=== PATIENT | female | born 1950 | race Caucasian/White ===

== ENCOUNTER 2022-09-23 11:06 | Inpatient (IN) | payer OTHER ==
[2022-09-23] MEDS ORDERED: LACTATED RINGERS SOLUTION 1000 ML INFUS.BAG IV ONE (12:07)
[2022-09-23] MEDS ORDERED: MECLIZINE HCL 25 MG TABLET (FP) PO ONE (12:07)
[2022-09-23 12:23] LABS: BASO % 0.6 % (0-2.0); EOS % 1.7 % (0-4.5); HEMATOCRIT 37.7 % (32.4-45.2); HEMOGLOBIN 12.5 GM/dL (10.7-15.3); MCH 25.1 pg (25.7-33.7); MEAN PLT VOLUME 10.4 fl (7.5-11.1); MONO % 5.3 % (3.8-10.2); NEUT % 72.4 % (42.8-82.8); PLATELET COUNT 235 10^3/uL (134-434); RBC 4.97 M/mm3 (3.60-5.2); RDW 17.7 % (11.6-15.6); WHITE BLOOD COUNT 6.5 K/mm3 (4.0-10.0)
[2022-09-23] MEDS ORDERED: MECLIZINE HCL 25 MG TABLET (FP) ONE (12:24)
[2022-09-23 12:46] LABS: CALCIUM 9.3 mg/dL (8.5-10.1)
[2022-09-23 12:51] LABS: CREATININE 0.8 mg/dL (0.55-1.3)
[2022-09-23 12:52] LABS: BILIRUBIN,TOTAL 0.2 mg/dL (0.2-1); TOT PROT 6.8 g/dl (6.4-8.2)
[2022-09-23] MEDS ORDERED: diazePAM CARPU-JECT 10 MG/2 ML DISP.SYRIN IVPUSH ONE (17:31)
[2022-09-23] MEDS ORDERED: diazePAM CARPU-JECT 10 MG/2 ML DISP.SYRIN ONE (18:13)
[2022-09-23] MEDS ORDERED: MECLIZINE HCL 12.5 MG TABLET PO PRN (20:58)
[2022-09-23 22:04] LABS: MAGNESIUM 1.7 mg/dL (1.8-2.4)
[2022-09-23 22:08] LABS: PHOSPHOROUS 3.4 mg/dL (2.5-4.9)
[2022-09-23] MEDS: LACTATED RINGERS SOLUTION 1,000 ML IV SCH (22:16)
[2022-09-23] MEDS: INSULIN SLIDING SCALE (NOVOLOG) 1 VIAL SQ SCH (22:44)
[2022-09-24] MEDS ORDERED: MAGNESIUM SULF 50% (8.12 MEQ/2 ML-1 GM VIAL) IVPB ONE (00:05)
[2022-09-24] MEDS ORDERED: MAGNESIUM SULFATE IN WATER 2 GM/50 ML IVPB IVPB ONE (00:10)
[2022-09-24 04:26] VITALS: BMI 36.2
[2022-09-24] MEDS: INSULIN SLIDING SCALE (NOVOLOG) 1 VIAL SQ SCH ×4 (06:10→21:18)
[2022-09-24 09:10] LABS: BASO % 0.7 % (0-2.0); EOS % 2.5 % (0-4.5); HEMATOCRIT 32.3 % (32.4-45.2); HEMOGLOBIN 10.9 GM/dL (10.7-15.3); LYMPH % 33.7 % (8-40); MCH 25.5 pg (25.7-33.7); MCHC 33.8 g/dl (32.0-36.0); MEAN CELL VOLUME 75.6 fl (80-96); MEAN PLT VOLUME 10.1 fl (7.5-11.1); MONO % 6.3 % (3.8-10.2); NEUT % 56.8 % (42.8-82.8); PLATELET COUNT 208 10^3/uL (134-434); RBC 4.28 M/mm3 (3.60-5.2); RDW 17.7 % (11.6-15.6); WHITE BLOOD COUNT 5.5 K/mm3 (4.0-10.0)
[2022-09-24 09:34] LABS: POTASSIUM 4.1 mmol/L (3.5-5.1)
[2022-09-24 09:40] LABS: EPI CELLS 10 /uL (0-25.1); HYALINE CASTS 0 /uL (0-3.1); URINE APPEARANCE CLEAR; URINE BACTERIA 273 /uL (0-1359); URINE BILIRUBIN NEGATIVE (NEGATIVE); URINE COLOR YELLOW; URINE GLUCOSE (UA) NEGATIVE (NEGATIVE); URINE KETONE NEGATIVE (NEGATIVE); URINE LEUK ESTERASE 1+ (NEGATIVE); URINE NITRITE NEGATIVE (NEGATIVE); URINE PROTEIN NEGATIVE (NEGATIVE); URINE RBC 5 /uL (0-23.9); URINE UROBILINOGEN 0.2 mg/dL (0.2-1.0); URINE WBC 16 /uL (0-25.8)
[2022-09-24 09:42] LABS: ALBUMIN 3.2 g/dl (3.4-5.0); CALCIUM 8.8 mg/dL (8.5-10.1); MAGNESIUM 1.9 mg/dL (1.8-2.4)
[2022-09-24 09:45] LABS: BILIRUBIN,TOTAL 0.6 mg/dL (0.2-1)
[2022-09-24 09:47] LABS: PHOSPHOROUS 2.5 mg/dL (2.5-4.9); TOT PROT 5.6 g/dl (6.4-8.2)
[2022-09-24 09:52] LABS: CREATININE 0.7 mg/dL (0.55-1.3)
[2022-09-24] MEDS: VALSARTAN 80 MG TABLET PO SCH (10:39)
[2022-09-24] MEDS: ASPIRIN COATED 81 MG TABLET.EC PO SCH (10:40)
[2022-09-24] MEDS: ENOXAPARIN NA (PORCINE) 40 MG/0.4 ML DISP.SYRIN SQ SCH (10:44)
[2022-09-24] MEDS: FENOFIBRIC ACID 135 MG CAP PO SCH (10:44)
[2022-09-24] MEDS: LACTATED RINGERS SOLUTION 1,000 ML IV SCH (17:31)
[2022-09-25] MEDS: INSULIN SLIDING SCALE (NOVOLOG) 1 VIAL SQ SCH ×2 (06:04→11:35)
[2022-09-25 08:38] VITALS: BP 145/85; PULSE 75; RESP 17; TEMP 98.2
[2022-09-25] MEDS: ASPIRIN COATED 81 MG TABLET.EC PO SCH (11:14)
[2022-09-25] MEDS: FENOFIBRIC ACID 135 MG CAP PO SCH (11:14)
[2022-09-25] MEDS: ENOXAPARIN NA (PORCINE) 40 MG/0.4 ML DISP.SYRIN SQ SCH (11:14)
[2022-09-25] MEDS: VALSARTAN 80 MG TABLET PO SCH (11:15)
== END 2022-09-25 13:18 | disposition home or self-care (01) | DRG 111 ==
LOC: JER 11:06 → JERBED 17:25 → UNDOADMIN 17:25 → J5S 09-24 03:00
PROVIDERS: ADMIT Internal Medicine; ATTEND Internal Medicine
DX: R42 Dizziness and giddiness (principal); E11.9 Type 2 diabetes mellitus without complications; E78.5 Hyperlipidemia, unspecified; Z79.84 Long term (current) use of oral hypoglycemic drugs; I11.0 Hypertensive heart disease with heart failure; I50.22 Chronic systolic (congestive) heart failure; E66.9 Obesity, unspecified; I25.2 Old myocardial infarction; E83.42 Hypomagnesemia; Z68.35 Body mass index [BMI] 35.0-35.9, adult
CPT/HCPCS: 36415; 70450-TC; 70496-TC; 70498-TC; 70551-TC; 80053; 81003; 82962; 83735; 84100; 85025; 93005; 93010; 93306-TC; 99285-25; C9803-CS; Q9967; U0003; U0005

== ENCOUNTER 2024-05-16 13:55 | Inpatient (IN) | payer OTHER ==
[2024-05-16 14:35] LABS: HEMATOCRIT 28.7 % (32.4-45.2); HEMOGLOBIN 9.7 G/dL (10.7-15.3); MCHC 33.9 g/dl (32.0-36.0); MEAN CELL VOLUME 82.8 fl (80-96); MEAN PLT VOLUME 9.6 fl (7.5-11.1); PLATELET COUNT 285.9 10^3/uL (134-434); RBC 3.47 10^6/uL (3.60-5.2); RDW 15.4 % (11.6-15.6); WHITE BLOOD COUNT 7.6 10^3/uL (4.0-10.8)
[2024-05-16 14:44] LABS: INR 1.21 (0.83-1.09); PROTHROMBIN TIME (PATIENT) 13.7 SEC (9.7-13.0)
[2024-05-16 15:03] LABS: ALBUMIN 3.9 g/dl (3.4-5.0); BILIRUBIN,TOTAL 0.4 mg/dl (0.2-1); CALCIUM 7.9 mg/dl (8.5-10.1); CREATININE 5.4 mg/dl (0.6-1.3)
[2024-05-16 15:08] LABS: MAGNESIUM 0.7 mg/dL (1.8-2.4)
[2024-05-16] MEDS ORDERED: CALCIUM GLUCONATE 10% - 1,000 MG/10 ML VIAL ONE (15:23)
[2024-05-16] MEDS ORDERED: MAGNESIUM SULFATE IN WATER 2 GM/50 ML IVPB IVPB ONE (15:24)
[2024-05-16] MEDS ORDERED: DEXTROSE 50%-WATER 25 GM/50 ML DISP.SYRIN ONE (15:24)
[2024-05-16] MEDS ORDERED: INSULIN REGULAR HUMAN 100 UNITS/ML *VIAL ONE (15:25)
[2024-05-16] MEDS: INSULIN REGULAR HUMAN 100 UNITS/ML *VIAL IVPUSH ONE (15:36)
[2024-05-16] MEDS: DEXTROSE 50%-WATER 25 GM/50 ML DISP.SYRIN IVPUSH ONE (15:36)
[2024-05-16] MEDS: MAGNESIUM SULF 50% (8.12 MEQ/2 ML-1 GM VIAL) IVPB ONE (15:41)
[2024-05-16] MEDS: CALCIUM GLUCONATE 10% - 1,000 MG/10 ML VIAL IVPB ONE (16:51)
[2024-05-16] MEDS: LACTATED RINGERS SOLUTION 1000 ML INFUS.BAG IV ONE (16:51)
[2024-05-16 20:42] LABS: CALCIUM 8.4 mg/dl (8.5-10.1); CREATININE 5.2 mg/dl (0.6-1.3); MAGNESIUM 1.3 mg/dL (1.8-2.4); POTASSIUM 5.9 mmol/L (3.5-5.1)
[2024-05-16] MEDS: HEPARIN NA (PORCINE) 5,000 UNITS/ML 1ML VIAL SQ SCH (23:16)
[2024-05-16] MEDS ORDERED: SODIUM ZIRCONIUM CYCLOSILICATE (LOKELMA) 5 GM PACKET PO SCH (23:45)
[2024-05-16] MEDS ORDERED: INSULIN REGULAR HUMAN 100 UNITS/ML *VIAL IVPUSH ONE (23:55)
[2024-05-17] MEDS: LACTATED RINGERS SOLUTION 1,000 ML/1,000 ML INFUS.BAG IV SCH (00:27)
[2024-05-17] MEDS: CALCIUM GLUCONATE 10% - 1,000 MG/10 ML VIAL IVPB ONE (00:36)
[2024-05-17] MEDS: SODIUM BICARBONATE 650 MG TABLET PO SCH (00:42)
[2024-05-17] MEDS: DEXTROSE 50%-WATER 25 GM/50 ML DISP.SYRIN IVPUSH ONE (01:02)
[2024-05-17] MEDS: SODIUM BICARBONATE 8.4% 50 MEQ/50 ML DISP.SYRIN IVPUSH ONE (01:19)
[2024-05-17] MEDS: INSULIN REGULAR HUMAN 100 UNITS/ML *VIAL IVPUSH ONE (01:28)
[2024-05-17] MEDS: SODIUM ZIRCONIUM CYCLOSILICATE (LOKELMA) 5 GM PACKET PO SCH (01:45)
[2024-05-17] MEDS: MAGNESIUM SULF 50% (8.12 MEQ/2 ML-1 GM VIAL) IVPB ONE (02:12)
[2024-05-17 02:46] LABS: POTASSIUM 5.2 mmol/L (3.5-5.1)
[2024-05-17 02:48] LABS: CALCIUM 8.6 mg/dL (8.5-10.1)
[2024-05-17 02:49] LABS: BLOOD UREA NITROGEN 79.2 mg/dL (7-18); MAGNESIUM 1.3 mg/dL (1.8-2.4)
[2024-05-17 02:52] LABS: CREATININE 4.7 mg/dL (0.55-1.3); PHOSPHOROUS 3.9 mg/dL (2.5-4.9)
[2024-05-17 02:54] LABS: BILIRUBIN,TOTAL 0.3 mg/dL (0.2-1); TOT PROT 6.1 g/dl (6.4-8.2)
[2024-05-17] MEDS: SODIUM CHLORIDE 500 ML IV STA (03:34)
[2024-05-17] MEDS: INSULIN ASPART SLIDING SCALE (NOVOLOG) 1 VIAL SQ SCH (06:57)
[2024-05-17 09:06] LABS: URINE APPEARANCE TURBID; URINE BILIRUBIN NEGATIVE (NEGATIVE); URINE COLOR YELLOW; URINE GLUCOSE (UA) NEGATIVE (NEGATIVE); URINE KETONE NEGATIVE (NEGATIVE); URINE LEUK ESTERASE 3+ (NEGATIVE); URINE NITRITE NEGATIVE (NEGATIVE); URINE PROTEIN 1+ (NEGATIVE); URINE UROBILINOGEN 0.2 mg/dL (0.2-1.0)
[2024-05-17 09:12] LABS: EPI CELLS 14 /uL (0-25.1); HYALINE CASTS 1 /uL (0-3.1); URINE BACTERIA >9000 /uL (0-1359); URINE RBC 243 /uL (0-23.9); URINE WBC 15080 /uL (0-25.8)
[2024-05-17] MEDS: MAGNESIUM 2GM/50ML STERILE WATER IVPB IVPB ONE (09:35)
[2024-05-17 09:51] LABS: HEMATOCRIT 27.3 % (32.4-45.2); HEMOGLOBIN 9.2 GM/dL (10.7-15.3); MCH 27.6 pg (25.7-33.7); MCHC 33.6 g/dl (32.0-36.0); MEAN CELL VOLUME 82.2 fl (80-96); MEAN PLT VOLUME 9.8 fl (7.5-11.1); PLATELET COUNT 248 10^3/uL (134-434); RBC 3.32 M/mm3 (3.60-5.2); RDW 15.7 % (11.6-15.6); WHITE BLOOD COUNT 5.2 K/mm3 (4.0-10.0)
[2024-05-17 10:07] LABS: POTASSIUM 5.2 mmol/L (3.5-5.1)
[2024-05-17 10:09] LABS: BLOOD UREA NITROGEN 70.7 mg/dL (7-18); CALCIUM 8.6 mg/dL (8.5-10.1)
[2024-05-17 10:13] LABS: CREATININE 4.1 mg/dL (0.55-1.3)
[2024-05-17 10:49] LABS: CHOLESTEROL 136 mg/dL (50-200); HDL CHOLESTEROL 53 mg/dL (40-60)
[2024-05-17 10:50] LABS: LDL CHOLESTEROL (ONLY SJRH) 52 mg/dL (5-100)
[2024-05-17 13:32] LABS: IRON SERUM 39 ug/dL (50-175); TOTAL IRON BINDING CAPACITY 375 ug/dL (250-450)
[2024-05-18 07:16] LABS: BASO % 0.8 % (0-2.0); EOS % 0.3 % (0-4.5); HEMATOCRIT 25.5 % (32.4-45.2); HEMOGLOBIN 8.4 GM/dL (10.7-15.3); LYMPH % 18.7 % (8-40); MCH 27.3 pg (25.7-33.7); MCHC 32.8 g/dl (32.0-36.0); MEAN PLT VOLUME 9.6 fl (7.5-11.1); MONO % 6.6 % (3.8-10.2); NEUT % 73.6 % (42.8-82.8); PLATELET COUNT 194 10^3/uL (134-434); RBC 3.08 M/mm3 (3.60-5.2); RDW 15.7 % (11.6-15.6); WHITE BLOOD COUNT 3.6 K/mm3 (4.0-10.0)
[2024-05-18 07:18] LABS: ALBUMIN 2.5 g/dl (3.4-5.0); BLOOD UREA NITROGEN 53.7 mg/dL (7-18); CALCIUM 8.3 mg/dL (8.5-10.1); MAGNESIUM 1.8 mg/dL (1.8-2.4)
[2024-05-18 07:22] LABS: PHOSPHOROUS 2.8 mg/dL (2.5-4.9)
[2024-05-18 07:23] LABS: BILIRUBIN,TOTAL 0.3 mg/dL (0.2-1); TOT PROT 5.2 g/dl (6.4-8.2)
[2024-05-18 07:35] LABS: POTASSIUM 5.3 mmol/L (3.5-5.1)
[2024-05-18] MEDS: SODIUM CHLORIDE 1,000 ML IV SCH (14:24)
[2024-05-18] MEDS: SODIUM ZIRCONIUM CYCLOSILICATE (LOKELMA) 5 GM PACKET PO SCH (19:38)
[2024-05-18] MEDS: ACETAMINOPHEN 325 MG TABLET (FP) PO ONE (21:35)
[2024-05-19] MEDS: ACETAMINOPHEN 325 MG TABLET (FP) PO ONE (06:34)
[2024-05-19] MEDS ORDERED: SODIUM ZIRCONIUM CYCLOSILICATE (LOKELMA) 5 GM PACKET PO SCH (07:55)
[2024-05-19 08:29] LABS: BASO % 0.6 % (0-2.0); HEMATOCRIT 22.2 % (32.4-45.2); HEMOGLOBIN 7.6 GM/dL (10.7-15.3); LYMPH % 13.5 % (8-40); MCH 27.8 pg (25.7-33.7); MCHC 34.1 g/dl (32.0-36.0); MEAN CELL VOLUME 81.5 fl (80-96); MEAN PLT VOLUME 9.8 fl (7.5-11.1); MONO % 6.6 % (3.8-10.2); NEUT % 79.3 % (42.8-82.8); PLATELET COUNT 156 10^3/uL (134-434); RBC 2.72 M/mm3 (3.60-5.2); RDW 15.6 % (11.6-15.6); WHITE BLOOD COUNT 3.6 K/mm3 (4.0-10.0)
[2024-05-19 08:42] LABS: ALBUMIN 2.4 g/dl (3.4-5.0)
[2024-05-19 08:43] LABS: BLOOD UREA NITROGEN 37.6 mg/dL (7-18); CALCIUM 7.9 mg/dL (8.5-10.1); MAGNESIUM 1.3 mg/dL (1.8-2.4)
[2024-05-19 08:45] LABS: BILIRUBIN,TOTAL 0.3 mg/dL (0.2-1); PHOSPHOROUS 2.4 mg/dL (2.5-4.9); TOT PROT 4.9 g/dl (6.4-8.2)
[2024-05-19 08:47] LABS: CREATININE 2.4 mg/dL (0.55-1.3)
[2024-05-19] MEDS: SODIUM ZIRCONIUM CYCLOSILICATE (LOKELMA) 5 GM PACKET PO SCH (09:33)
[2024-05-19] MEDS: ONDANSETRON 4 MG/2 ML VIAL IVPUSH ONE (12:12)
[2024-05-19] MEDS: LOPERAMIDE HCL 2 MG CAPSULE PO PRN (12:12)
[2024-05-19] MEDS: MAGNESIUM SULFATE IN WATER 2 GM/50 ML IVPB IVPB ONE (13:25)
[2024-05-19] MEDS ORDERED: hydrALAZINE HCL 20 MG/ML VIAL IVPUSH PRN (14:32)
[2024-05-19] MEDS: MAGNESIUM SULFATE IN WATER 2 GM/50 ML IVPB IVPB SCH (15:16)
[2024-05-19] MEDS: ACETAMINOPHEN 1000 MG/100 ML BAG IVPB PRN (15:16)
[2024-05-19] MEDS: SODIUM CHLORIDE 1,000 ML IV SCH (15:17)
[2024-05-19] MEDS: SODIUM PHOSPHATE - 30 MM in SODIUM CHLORIDE 500 ML IVPB ONE (15:56)
[2024-05-19 17:21] LABS: LACTIC ACID 4.4 mmol/L (0.4-2.0)
[2024-05-19] MEDS ORDERED: PIPERACILLIN/TAZOB 2.25 GM 2.25 GM in DEXTROSE 5%-WATER - 50 ML IVPB SCH ×2 (17:45→21:00)
[2024-05-19] MEDS: PIPERACILLIN/TAZOB 2.25 GM 2.25 GM in DEXTROSE 5%-WATER - 50 ML IVPB SCH ×2 (18:33→18:41)
[2024-05-19] MEDS: ONDANSETRON 4 MG/2 ML VIAL IVPUSH PRN (22:41)
[2024-05-20 07:57] LABS: BASO % 0.3 % (0-2.0); HEMATOCRIT 21.4 % (32.4-45.2); HEMOGLOBIN 7.1 GM/dL (10.7-15.3); LYMPH % 16.8 % (8-40); MCH 27.4 pg (25.7-33.7); MCHC 33.3 g/dl (32.0-36.0); MEAN CELL VOLUME 82.3 fl (80-96); MEAN PLT VOLUME 9.4 fl (7.5-11.1); MONO % 7.8 % (3.8-10.2); NEUT % 75.1 % (42.8-82.8); PLATELET COUNT 129 10^3/uL (134-434); RDW 16.1 % (11.6-15.6); WHITE BLOOD COUNT 3.3 K/mm3 (4.0-10.0)
[2024-05-20 08:41] LABS: POTASSIUM 4.6 mmol/L (3.5-5.1)
[2024-05-20 08:47] LABS: ALBUMIN 2.1 g/dl (3.4-5.0); CALCIUM 7.7 mg/dL (8.5-10.1)
[2024-05-20 08:48] LABS: BLOOD UREA NITROGEN 32.9 mg/dL (7-18); MAGNESIUM 2.2 mg/dL (1.8-2.4)
[2024-05-20 08:51] LABS: CREATININE 2.2 mg/dL (0.55-1.3)
[2024-05-20 08:52] LABS: BILIRUBIN,TOTAL 0.3 mg/dL (0.2-1); TOT PROT 4.5 g/dl (6.4-8.2)
[2024-05-20] MEDS: CHOLESTYRAMINE/NUTRASWEET 4 GM PACKET PO SCH (09:03)
[2024-05-20] MEDS ORDERED: METOCLOPRAMIDE HCL INJECTION 10 MG/2 ML VIAL IVPUSH PRN (11:13)
[2024-05-20] MEDS: PIPERACILLIN/TAZOB 2.25 GM 2.25 GM/50 ML BAG IVPB SCH (14:46)
[2024-05-20] MEDS: ACETAMINOPHEN 1000 MG/100 ML BAG IVPB ONE (15:49)
[2024-05-20] MEDS ORDERED: TRIMETHOBENZAMIDE HCL 200MG/2ML INJ IM PRN (18:16)
[2024-05-20 18:54] LABS: HEMATOCRIT 21.3 % (32.4-45.2); MCH 26.9 pg (25.7-33.7); MCHC 32.3 g/dl (32.0-36.0); MEAN CELL VOLUME 83.3 fl (80-96); MEAN PLT VOLUME 9.7 fl (7.5-11.1); PLATELET COUNT 133 10^3/uL (134-434); RBC 2.56 M/mm3 (3.60-5.2)
[2024-05-20 18:59] LABS: INR 1.35 (0.83-1.09); PROTHROMBIN TIME (PATIENT) 15.1 SEC (9.7-13.0)
[2024-05-20 19:11] LABS: HEMOGLOBIN 6.9 GM/dL (10.7-15.3)
[2024-05-20 19:15] LABS: BLOOD UREA NITROGEN 31.4 mg/dL (7-18); CALCIUM 7.3 mg/dL (8.5-10.1); MAGNESIUM 1.8 mg/dL (1.8-2.4); POTASSIUM 3.8 mmol/L (3.5-5.1)
[2024-05-20 19:19] LABS: CREATININE 2.2 mg/dL (0.55-1.3)
[2024-05-20 20:04] LABS: ANISOCYTOSIS 0; MACROCYTOSIS 0
[2024-05-20 20:37] LABS: BASO % 0.8 % (0-2.0); EOS % 0.2 % (0-4.5); HEMATOCRIT 21.4 % (32.4-45.2); HEMOGLOBIN 7.1 GM/dL (10.7-15.3); LYMPH % 20.7 % (8-40); MCH 27.1 pg (25.7-33.7); MEAN CELL VOLUME 82.1 fl (80-96); MEAN PLT VOLUME 9.6 fl (7.5-11.1); MONO % 11.1 % (3.8-10.2); NEUT % 67.2 % (42.8-82.8); PLATELET COUNT 113 10^3/uL (134-434); RBC 2.61 M/mm3 (3.60-5.2); RDW 15.8 % (11.6-15.6); WHITE BLOOD COUNT 2.9 K/mm3 (4.0-10.0)
[2024-05-20] MEDS: PIPERACILLIN/TAZOB 3.375 GM 3.375 GM in DEXTROSE 5%-WATER - 50 ML IVPB SCH (21:31)
[2024-05-21] MEDS: FUROSEMIDE 40 MG/4 ML INJECTABLE VIAL IVPUSH ONE (00:20)
[2024-05-21] MEDS: ACETAMINOPHEN 1000 MG/100 ML BAG IVPB ONE (00:51)
[2024-05-21] MEDS: MELATONIN 5 MG TABLETS PO ONE (01:42)
[2024-05-21 02:30] LABS: HEMATOCRIT 26.4 % (32.4-45.2); HEMOGLOBIN 8.4 GM/dL (10.7-15.3); MCH 27.2 pg (25.7-33.7); MEAN PLT VOLUME 10.5 fl (7.5-11.1); PLATELET COUNT 211 10^3/uL (134-434); RDW 16.7 % (11.6-15.6); WHITE BLOOD COUNT 5.1 K/mm3 (4.0-10.0)
[2024-05-21 02:50] LABS: POTASSIUM 4.5 mmol/L (3.5-5.1); POTASSIUM 4.6 mmol/L (3.5-5.1)
[2024-05-21 02:52] LABS: CALCIUM 7.6 mg/dL (8.5-10.1)
[2024-05-21 02:53] LABS: ALBUMIN 2.3 g/dl (3.4-5.0); BLOOD UREA NITROGEN 29.4 mg/dL (7-18)
[2024-05-21 02:54] LABS: ALBUMIN 2.4 g/dl (3.4-5.0); CALCIUM 7.5 mg/dL (8.5-10.1); MAGNESIUM 1.8 mg/dL (1.8-2.4)
[2024-05-21 02:55] LABS: BLOOD UREA NITROGEN 29.6 mg/dL (7-18)
[2024-05-21 02:56] LABS: CREATININE 2.4 mg/dL (0.55-1.3)
[2024-05-21 02:57] LABS: BILIRUBIN,TOTAL 2.3 mg/dL (0.2-1); CREATININE 2.3 mg/dL (0.55-1.3); PHOSPHOROUS 4.6 mg/dL (2.5-4.9); TOT PROT 5.4 g/dl (6.4-8.2)
[2024-05-21 02:59] LABS: BILIRUBIN,TOTAL 2.4 mg/dL (0.2-1); TOT PROT 5.4 g/dl (6.4-8.2)
[2024-05-21 03:34] LABS: URINE APPEARANCE CLEAR; URINE BILIRUBIN NEGATIVE (NEGATIVE); URINE COLOR YELLOW; URINE GLUCOSE (UA) NEGATIVE (NEGATIVE); URINE KETONE NEGATIVE (NEGATIVE); URINE LEUK ESTERASE 1+ (NEGATIVE); URINE NITRITE NEGATIVE (NEGATIVE); URINE PROTEIN 1+ (NEGATIVE); URINE UROBILINOGEN 0.2 mg/dL (0.2-1.0)
[2024-05-21 03:54] LABS: INR 1.33 (0.83-1.09); PROTHROMBIN TIME (PATIENT) 14.9 SEC (9.7-13.0)
[2024-05-21 03:56] LABS: ACTIVATED PTT 32.1 SECONDS (25.2-36.5)
[2024-05-21 05:43] LABS: EPI CELLS 12.6 /uL (0-25.1)
[2024-05-21 05:44] LABS: HYALINE CASTS 0.27 /uL (0-3.1); URINE BACTERIA 3.7 /uL (0-1359); YEAST NONE SEEN (NEGATIVE)
[2024-05-21] MEDS ORDERED: TRIMETHOBENZAMIDE HCL 200MG/2ML INJ IM PRN (07:52)
[2024-05-21 08:53] LABS: HEMATOCRIT 22.1 % (32.4-45.2); HEMOGLOBIN 7.3 GM/dL (10.7-15.3); MCH 27.2 pg (25.7-33.7); MEAN CELL VOLUME 82.6 fl (80-96); RBC 2.68 M/mm3 (3.60-5.2); RDW 16.2 % (11.6-15.6)
[2024-05-21 09:17] LABS: POTASSIUM 3.8 mmol/L (3.5-5.1)
[2024-05-21 09:19] LABS: BLOOD UREA NITROGEN 33.3 mg/dL (7-18); CALCIUM 7.3 mg/dL (8.5-10.1)
[2024-05-21 09:23] LABS: CREATININE 2.3 mg/dL (0.55-1.3)
[2024-05-21 09:24] LABS: BILIRUBIN,TOTAL 2.2 mg/dL (0.2-1); TOT PROT 4.5 g/dl (6.4-8.2)
[2024-05-21 09:37] LABS: PLATELET COUNT 99 10^3/uL (134-434)
[2024-05-21] MEDS: LACTATED RINGERS SOLUTION 1,000 ML/1,000 ML INFUS.BAG IV SCH ×3 (11:35→23:13)
[2024-05-21 13:08] LABS: PARATHYROID HORM INTACT 100 pg/mL (15-65)
[2024-05-21 14:13] VITALS: BMI 28.9
[2024-05-21 16:19] LABS: HEMATOCRIT 22.6 % (32.4-45.2); HEMOGLOBIN 7.5 GM/dL (10.7-15.3); MCH 27.1 pg (25.7-33.7); MCHC 33.2 g/dl (32.0-36.0); MEAN CELL VOLUME 81.7 fl (80-96); MEAN PLT VOLUME 10.2 fl (7.5-11.1); PLATELET COUNT 131 10^3/uL (134-434); RBC 2.76 M/mm3 (3.60-5.2); RDW 16.4 % (11.6-15.6)
[2024-05-21 16:38] LABS: BILIRUBIN,DIRECT 0.7 mg/dL (0.0-0.2)
[2024-05-21 16:41] LABS: TOT PROT 4.5 g/dl (6.4-8.2)
[2024-05-22 08:15] LABS: HEMATOCRIT 23.1 % (32.4-45.2); HEMOGLOBIN 7.6 GM/dL (10.7-15.3); MCHC 32.8 g/dl (32.0-36.0); MEAN CELL VOLUME 82.3 fl (80-96); MEAN PLT VOLUME 9.8 fl (7.5-11.1); PLATELET COUNT 152 10^3/uL (134-434); RBC 2.81 M/mm3 (3.60-5.2); RDW 16.2 % (11.6-15.6)
[2024-05-22 08:45] LABS: POTASSIUM 3.5 mmol/L (3.5-5.1)
[2024-05-22 08:48] LABS: ALBUMIN 2.2 g/dl (3.4-5.0); BLOOD UREA NITROGEN 29.8 mg/dL (7-18); CALCIUM 7.8 mg/dL (8.5-10.1); MAGNESIUM 1.6 mg/dL (1.8-2.4)
[2024-05-22 08:51] LABS: CREATININE 2.1 mg/dL (0.55-1.3); PHOSPHOROUS 2.6 mg/dL (2.5-4.9)
[2024-05-22 08:53] LABS: BILIRUBIN,TOTAL 0.5 mg/dL (0.2-1); TOT PROT 5.1 g/dl (6.4-8.2)
[2024-05-22 11:58] LABS: HIV INTERPRETATION NEGATIVE (NEGATIVE)
[2024-05-22] MEDS: MAGNESIUM 1GM/D5W - 1 GM/100 ML IVPB IVPB ONE (17:18)
[2024-05-22] MEDS: LACTATED RINGERS SOLUTION 1,000 ML/1,000 ML INFUS.BAG IV SCH (17:19)
[2024-05-22] MEDS: MAGNESIUM 2GM/50ML STERILE WATER IVPB IVPB ONE (19:56)
[2024-05-23] MEDS: PIPERACILLIN/TAZOB 3.375 GM 50 ML IVPB SCH (03:31)
[2024-05-23] MEDS ORDERED: INSULIN ASPART SLIDING SCALE (NOVOLOG) 1 VIAL SQ ONE (06:10)
[2024-05-23 07:18] LABS: HEMATOCRIT 24.7 % (32.4-45.2); MCHC 32.4 g/dl (32.0-36.0); MEAN CELL VOLUME 83.5 fl (80-96); MEAN PLT VOLUME 9.6 fl (7.5-11.1); PLATELET COUNT 226 10^3/uL (134-434); RBC 2.96 M/mm3 (3.60-5.2); RDW 16.6 % (11.6-15.6); WHITE BLOOD COUNT 5.5 K/mm3 (4.0-10.0)
[2024-05-23 07:40] LABS: POTASSIUM 4.1 mmol/L (3.5-5.1)
[2024-05-23 07:50] LABS: CALCIUM 8.4 mg/dL (8.5-10.1); MAGNESIUM 1.4 mg/dL (1.8-2.4)
[2024-05-23 07:52] LABS: ALBUMIN 2.2 g/dl (3.4-5.0); BLOOD UREA NITROGEN 23.4 mg/dL (7-18)
[2024-05-23 07:54] LABS: BILIRUBIN,TOTAL 0.4 mg/dL (0.2-1); CREATININE 1.8 mg/dL (0.55-1.3)
[2024-05-23 07:55] LABS: TOT PROT 5.2 g/dl (6.4-8.2)
[2024-05-23] MEDS: MAGNESIUM 2GM/50ML STERILE WATER IVPB IVPB ONE (08:25)
[2024-05-23] MEDS: MAGNESIUM OXIDE 400 MG TABLET (FP) PO SCH (10:01)
[2024-05-23 12:31] VITALS: BP 110/66; PULSE 83; RESP 17; TEMP 98.2
== END 2024-05-23 19:10 | disposition home health service (06) | DRG 469 ==
LOC: FER 13:55 → J4W 21:38
PROVIDERS: ADMIT Internal Medicine; ATTEND Internal Medicine
DX: N17.9 Acute kidney failure, unspecified (principal); I13.0 Hypertensive heart and chronic kidney disease with heart failure and stage 1 through stage 4 chronic kidney disease, or unspecified chronic kidney disease; E11.22 Type 2 diabetes mellitus with diabetic chronic kidney disease; N18.9 Chronic kidney disease, unspecified; I50.22 Chronic systolic (congestive) heart failure; I25.10 Atherosclerotic heart disease of native coronary artery without angina pectoris; E87.5 Hyperkalemia; E83.42 Hypomagnesemia; E87.20 Acidosis, unspecified; E78.5 Hyperlipidemia, unspecified; I21.4 Non-ST elevation (NSTEMI) myocardial infarction; J69.0 Pneumonitis due to inhalation of food and vomit; I95.9 Hypotension, unspecified; R19.7 Diarrhea, unspecified; R50.9 Fever, unspecified; R11.10 Vomiting, unspecified; D69.6 Thrombocytopenia, unspecified; D64.9 Anemia, unspecified; T80.92XA Unspecified transfusion reaction, initial encounter; Y84.9 Medical procedure, unspecified as the cause of abnormal reaction of the patient, or of later complication, without mention of misadventure at the time of the procedure
CPT/HCPCS: 36415; 36430; 71045-TC-FY; 71046-TC-FY; 71250-TC; 74018-TC-FY; 74176-TC; 76775-TC; 80048; 80051; 80053; 80061; 80076; 81003; 82010; 82272; 82310; 82550; 82728; 82962; 83010; 83036; 83540; 83550; 83605; 83615; 83625; 83735; 83880; 83970; 84100; 84443; 84466; 84484; 85025; 85027; 85045; 85303; 85384; 85610; 85730; 86022; 86078; 86850; 86900; 86901; 86922; 87040; 87045; 87046; 87086; 87186; 87209; 87324; 87389; 87449; 87635; 93005; 93010; 93306-TC; 99285-25; J0131; J1644; P9058